=== PATIENT | female | born 1960 | race Caucasian/White ===

== ENCOUNTER 2017-09-12 13:09 | Outpatient (CLI) | payer OTHER | END 2017-09-12 13:10 | disposition home or self-care (01) | DRG 554 | LOC: CONVCARE 13:09 | PROVIDERS: ATTEND Orthopaedic Surgery | DX: M17.0 Bilateral primary osteoarthritis of knee (principal) | CPT/HCPCS: 73564 ==

== ENCOUNTER 2017-11-12 08:10 | Day surgery (SDC) | payer OTHER ==
[~2017-11-12 08:10] MED LIST: LIDOCAINE HCL 1% MPF SOL ONE; PROPOFOL 500 MG/50 ML EMU IV ONE
[2017-11-12] MEDS ORDERED: PROPOFOL 500 MG/50 ML EMU IV ONE (10:04)
[2017-11-12 10:10] VITALS: TEMP 98.9
[2017-11-12 10:32] VITALS: RESP 20; O2SAT 96
[2017-11-12 10:40] VITALS: BP 133/81; PULSE 75
== END 2017-11-12 10:55 | disposition home or self-care (01) | DRG 951 ==
LOC: SURG 08:10
PROVIDERS: ATTEND Internal Medicine Gastroenterology
DX: Z12.11 Encounter for screening for malignant neoplasm of colon (principal); D12.3 Benign neoplasm of transverse colon; K57.30 Diverticulosis of large intestine without perforation or abscess without bleeding; Z80.0 Family history of malignant neoplasm of digestive organs; Z86.010 Personal history of colon polyps; K64.8 Other hemorrhoids; K63.5 Polyp of colon
CPT/HCPCS: 99001; J2001; J2704